=== PATIENT | female | born 1960 | race Caucasian/White ===

== ENCOUNTER 2023-07-29 05:10 | Day surgery (SDC) | payer BC, OTHER ==
[2023-07-27 11:43] VITALS: BMI 24.6
[2023-07-29 09:41] VITALS: TEMP 97.7
[2023-07-29 10:25] VITALS: BP 146/77; PULSE 61; RESP 12
== END 2023-07-29 10:20 | disposition home or self-care (01) ==
LOC: JASU-ENDO 05:10
PROVIDERS: ATTEND Internal Medicine Gastroenterology
PROC: 0DB98ZX Excision of Duodenum, Via Natural or Artificial Opening Endoscopic, Diagnostic (ICD-10-PCS; 2023-07-29)
PROC: 0DB78ZX Excision of Stomach, Pylorus, Via Natural or Artificial Opening Endoscopic, Diagnostic (ICD-10-PCS; 2023-07-29)
PROC: 0DB68ZX Excision of Stomach, Via Natural or Artificial Opening Endoscopic, Diagnostic (ICD-10-PCS; 2023-07-29)
PROC: 0DBK8ZX Excision of Ascending Colon, Via Natural or Artificial Opening Endoscopic, Diagnostic (ICD-10-PCS; principal; 2023-07-29 09:00)
DX: Z12.11 Encounter for screening for malignant neoplasm of colon (principal); K63.5 Polyp of colon; K29.50 Unspecified chronic gastritis without bleeding; K21.00 Gastro-esophageal reflux disease with esophagitis, without bleeding; K64.8 Other hemorrhoids
CPT/HCPCS: 88305-TC; 88342-TC

== ENCOUNTER 2024-03-23 21:25 | Emergency (ER) | payer BC, OTHER ==
[2024-03-23 21:38] VITALS: BP 139/85; PULSE 117; RESP 18; TEMP 98.5; BMI 24.2
[2024-03-23 22:03] LABS: EPI CELLS 7 /uL (0-25.1); HYALINE CASTS 15 /uL (0-3.1); PH,URINE 5.5 (5.0-8.0); URINE APPEARANCE TURBID; URINE BACTERIA 158 /uL (0-1359); URINE BILIRUBIN 1+ (NEGATIVE); URINE COLOR RED; URINE GLUCOSE (UA) NEGATIVE (NEGATIVE); URINE KETONE NEGATIVE (NEGATIVE); URINE LEUK ESTERASE 3+ (NEGATIVE); URINE NITRITE NEGATIVE (NEGATIVE); URINE PROTEIN 3+ (NEGATIVE); URINE UROBILINOGEN 0.2 mg/dL (0.2-1.0); URINE WBC 8520 /uL (0-25.8)
[2024-03-23] MEDS ORDERED: CEFPODOXIME PROXETIL 100 MG TABLET PO ONE (22:31)
[2024-03-23 22:34] LABS: YEAST NONE SEEN (NEGATIVE)
[2024-03-23] MEDS ORDERED: PHENAZOPYRIDINE HCL 100 MG TABLET (FP) ONE (22:40)
[2024-03-23] MEDS: CEFPODOXIME PROXETIL 200 MG TABLET [NF] PO ONE (22:55)
[2024-03-23] MEDS: PHENAZOPYRIDINE HCL 100 MG TABLET (FP) PO ONE (22:55)
== END 2024-03-23 22:56 | disposition home or self-care (01) ==
LOC: JER 21:25
DX: N30.91 Cystitis, unspecified with hematuria (principal); R30.0 Dysuria
CPT/HCPCS: 81003; 87086; 87186; 99283-25